=== PATIENT | male | born 1955 | race Caucasian/White ===

== ENCOUNTER 2021-11-03 12:30 | Inpatient (IN) | payer MEDICARE, OTHER ==
[~2021-11-03] VITALS: Ht 172.7 cm; Wt 83.9 kg
[2021-11-03 13:00] VITALS: BP 145/88
[2021-11-03] MEDS ORDERED: MAGNESIUM HYDROXIDE 30 ML UDC PO PRN (13:00)
[2021-11-03] MEDS ORDERED: BLOOD SUGAR DIAGNOSTIC 1 EACH STRIP IN ONE (13:00)
[2021-11-03] MEDS ORDERED: ACETAMINOPHEN 325 MG TABLET PO PRN (13:00)
[2021-11-03] MEDS ORDERED: TEMAZEPAM 7.5 MG CAPSULE PO PRN (13:00)
[2021-11-03] MEDS ORDERED: MAG HYDROX/AL HYDROX/SIMETH 30 ML UDC PO PRN (13:00)
--- NOTE | 2021-11-03 13:00 | NUR ---
RN-ADMISSION NOTES ADMITTED DIRECT ADMIT A 66 Y.O MALE FROM [facility]. PATIENT ON 5150 HOLD FOR DTS. UPON FACE TO FACE INTERVIEW ,PATIENT IS A/O X4 AMBULATORY STEADY GAIT, FLAT AFFECT DID VERBALIZED THAT HE IS DEPRESSED BUT NO SUICIDAL THOUGHT AT THIS TIME. PATIENT'S RIGHT AND ADVISEMENT WAS REVIEWED AND GIVEN TO THE PATIENT.PATIENT REFUSED FULL BODY ASSESSMENT AND MRSA SWAB. PATIENT DID GAVE A MAPLE SUGAR MAKER DANYDELTA ANAIS BUT FORGOT THE PHONE NUMBER. PATIENT WAS ORIENTED IN THE UNIT AND UNIT POLICIES. DR. ORTEGA (PSYCHISTRIST) AND ANKIT MARIO ( SUSTAINABLE AGRICULTURE SPECIALIST ) BOTH MADE AWARE OF THE ADMISSION. WILL CONT. MONITORING FOR SAFETY AND BEHAVIOR. Addendum: 11/03/21 at 1728 by ROBERTO LANDRUM RN BLUE RIVERA (ADMITTING SUSTAINABLE AGRICULTURE SPECIALIST ) WAS NOTIFIED AND TO RECONCILE PT'S MEDICATIONS.
[2021-11-03] MEDS ORDERED: ALLO300T2 PO (13:12)
[2021-11-03] MEDS ORDERED: DOLU50TA PO (13:12)
[2021-11-03] MEDS ORDERED: EMTR1TAB17 PO (13:12)
[2021-11-03] MEDS ORDERED: OMEP1PAC7 PO (13:12)
[2021-11-03] MEDS ORDERED: OXYC30TA2 PO (13:12)
[2021-11-03] MEDS ORDERED: BENA1TAB18 PO (13:12)
[2021-11-03] MEDS ORDERED: DIPH25CA83 PO (13:12)
[2021-11-03] MEDS ORDERED: GABA300C PO (13:12)
[2021-11-03] MEDS ORDERED: ESZO3TAB39 PO (13:12)
[2021-11-03 16:00] VITALS: BP 145/88
--- NOTE | 2021-11-03 18:24 | NUR ---
RN-NOTES PATIENT LYING IN BED AWAKE,A/O X3,GUARDED,NO ACUTE DISTRESS NOTED. AMBULATORY STEADY GAIT. ABLE TO MAKE NEEDS KNOWN TO THE STAFF.ALL NEEDS ATTENDED AND ANTICIPATED. SEEN BY BLUE RIVERA.WILL CONT. MONITORING FOR SAFETY AND BEHAVIOR.WILL ENDORSE TO INCOMING SHIFT FOR CONTINUITY OF CARE.
[2021-11-03] MEDS ORDERED: DESCOVY PO SCH (18:30)
[2021-11-03] MEDS ORDERED: TIVICAY 50 MG PO SCH (18:30)
[2021-11-03] MEDS ORDERED: HOME MED MISCELLANEOUS XX SCH ×2 (18:30)
[2021-11-03] MEDS: LORAZEPAM 0.5 MG TABLET PO PRN (19:52)
--- NOTE | 2021-11-03 19:58 | NUR ---
RN NOTE: ANXIETY PATIENT EXHIBITS RESTLESSNESS AND EXPRESSES FEELING ANXIOUS. PRN ATIVAN 1MG ADMINISTERED @1951. WILL CONTINUE TO MONITOR PATIENT AND EFFECTIVENESS OF MEDICATION.
[2021-11-03 20:57] VITALS: BP 140/83
[2021-11-03] MEDS: QUETIAPINE FUMARATE 25 MG TABLET PO SCH (21:25)
--- NOTE | 2021-11-04 06:15 | NUR ---
RN NOTE Patient presents as anxious and restless. He is observed pacing in his room and says he has trouble sleeping. PRN Ativan 1mg was administered @1951. Medication was effective and patient was calm and redirectable thereafter. Patient is able to verbalize his needs appropriately, but has poor impulse control. He is also easily irritable and requires frequent de-escalation. Will continue to monitor patient.
--- NOTE | 2021-11-04 07:24 | NUR ---
GPS RN OPENING NOTE RECEIVED PT ASLEEP IN BED, EASILY AROUSED. PT A/O X4, ABLE TO MAKE NEEDS KNOWN. PT IS NOT IN ANY SIGN OF DISTRESS. PT IS CALM WITH NO EPISODE OF UNTOWARD BEHAVIOR AT THIS TIME. SAFETY MEASURES MAINTAINED. WILL CONTINUE TO MONITOR PT.
[2021-11-04 08:00] VITALS: BP 114/63
[2021-11-04] MEDS: PANTOPRAZOLE 40 MG TABLET.DR PO SCH (08:32)
[2021-11-04] MEDS: SERTRALINE HCL 50 MG TABLET PO SCH (08:32)
[2021-11-04] MEDS: BENAZEPRIL HCL 20 MG TABLET PO SCH (08:33)
[2021-11-04] MEDS: ALLOPURINOL 100 MG TABLET PO SCH (08:33)
[2021-11-04] MEDS: NICOTINE PATCH (7MG) 7 MG PATCH.TD24 TD SCH (08:33)
[2021-11-04] MEDS: HYDROCHLOROTHIAZIDE 25 MG TABLET PO SCH (08:34)
--- NOTE | 2021-11-04 09:43 | NUR ---
RN-CO: DR RIVERA ORDERED TO CHANGE DIET FROM CARDIAC TO [id number] PORTION) PER PT REQUEST.
--- NOTE | 2021-11-04 09:54 | NUR ---
RN-CO: Patient refused Cardiac Diet, he insisted to regular diet and double portion.
[2021-11-04] MEDS: GABAPENTIN 300 MG CAPSULE PO SCH (10:07)
--- NOTE | 2021-11-04 13:20 | NUR ---
GPS RN NOTE PT A/O X4, ABLE TO MAKE NEEDS KNOWN. PT IS NOT IN ANY SIGN OF DISTRESS. PT REMAINS CALM WITH NO EPISODE OF UNTOWARD BEHAVIOR AT THIS TIME. SAFETY MEASURES MAINTAINED. WILL CONTINUE TO MONITOR PT.
[2021-11-04 16:00] VITALS: BP 135/88
--- NOTE | 2021-11-04 16:22 | NUR ---
GPS RN NOTE PT C/O INDIGESTION AND REQUESTED MAALOX. MAALOX 30ML GIVEN ORDERED PRN Q4HRS FOR INDIGESTION. WILL MONITOR AND REASSESS PT.
[2021-11-04 19:26] LABS: ALBUMIN 3.4 g/dL (3.4-5.0); BILIRUBIN,TOTAL 0.4 mg/dL (0.2-1.0); CALCIUM, SERUM 8.5 mg/dL (8.5-10.1); CREATININE 1.2 mg/dL (0.6-1.3); POTASSIUM 4.1 mmol/L (3.5-5.1)
[2021-11-04 19:42] LABS: CHOLESTEROL 182 mg/dL (<200); HDL CHOLESTEROL 43 mg/dL (40-60); LDL 98 mg/dL (0-99); TRIGLYCERIDES 354 mg/dL (30-150)
[2021-11-04 20:00] VITALS: BP 128/73
[2021-11-04] MEDS: LORAZEPAM 0.5 MG TABLET PO PRN (20:01)
--- NOTE | 2021-11-04 20:01 | NUR ---
RN NOTE PT COMPLAINED OF ANXIETY AND REQUESTED ATIVAN. ADMINISTERED ATIVAN 1 MG FOR ANXIETY ORDERED. ALL NEEDS MET AT THIS TIME.
[2021-11-04 20:02] VITALS: BP 128/73
[2021-11-04] MEDS: QUETIAPINE FUMARATE 25 MG TABLET PO SCH (21:53)
[2021-11-04] MEDS: HYDROCODONE/APAP 10/325MG TABLET PO PRN (21:58)
--- NOTE | 2021-11-04 21:58 | NUR ---
RN NOTE PT COMPLAINED OF PAIN 8/10 OF BILATERAL THIGHS. REQUESTED PAIN MEDICATION. ADMINISTERED NORCO 10-325 MG FOR SEVERE PAIN ORDERED. ALL NEEDS MET AT THIS TIME.
[2021-11-05 08:00] VITALS: BP 151/96
[2021-11-05] MEDS: PANTOPRAZOLE 40 MG TABLET.DR PO SCH (08:30)
[2021-11-05] MEDS: SERTRALINE HCL 50 MG TABLET PO SCH (08:33)
[2021-11-05] MEDS: BENAZEPRIL HCL 20 MG TABLET PO SCH (08:33)
[2021-11-05] MEDS: GABAPENTIN 300 MG CAPSULE PO SCH (08:33)
[2021-11-05] MEDS: HYDROCHLOROTHIAZIDE 25 MG TABLET PO SCH (08:33)
[2021-11-05] MEDS: ALLOPURINOL 100 MG TABLET PO SCH (08:34)
[2021-11-05] MEDS: LORAZEPAM 0.5 MG TABLET PO PRN ×2 (08:34→18:06)
[2021-11-05] MEDS: NICOTINE PATCH (7MG) 7 MG PATCH.TD24 TD SCH (08:34)
[2021-11-05] MEDS: HYDROCODONE/APAP 10/325MG TABLET PO PRN (13:00)
--- NOTE | 2021-11-05 15:22 | NUR ---
Initial Discharge Plan: Pt. states he currently resides at home [[address] [facility] [address]; [phone]] with his partner and declined to provide partner's information. Per pt. he would like to return home when ready for discharge. Per pt. his partner will not be able to pick him up upon discharge. Pt. states he does not have a DPOA or Conservator and that he does not want his family involved in his treatment. Pt. states he does not want SW to call his family. Noted.
--- NOTE | 2021-11-05 15:26 | NUR ---
No Point of Contact: Pt. stated that his sister, Eliana Faith [phone] is to only be an emergency contact. Pt. states he does not have a DPOA or Conservator and that he does not want his family involved in his treatment. Pt. states he does not want SW to call his family. Noted.
[2021-11-05 16:00] VITALS: BP 115/78
[2021-11-05 19:55] VITALS: BP 129/85
[2021-11-05 20:00] VITALS: BP 129/85
[2021-11-05] MEDS: diphenhydrAMINE HCL 25 MG CAPSULE PO PRN (21:17)
--- NOTE | 2021-11-05 21:20 | NUR ---
RN NOTE: INSOMNIA PATIENT C/O INABILITY TO SLEEP AND WANTED TO TAKE BENADRYL AT THIS TIME. PRN BENADRYL 50 MG PO ADMINISTERED ORDERED BY FOR INSOMNIA.
[2021-11-05] MEDS: QUETIAPINE FUMARATE 25 MG TABLET PO SCH (22:08)
--- NOTE | 2021-11-06 07:13 | NUR ---
GPS RN NOTE DISCUSSED WITH THE PATIENT IF HIS FAMILY COULD PROVIDE DESCOVY AND TIVICAY MEDICATION BUT PATIENT STATED THAT HE DOES NOT HAVE MEDICATION OR REFILLS AT HOME AND THERE IS NO FAMILY MEMBER LIVES IN THE STATE. INFORMED AM CHARGE NURSE TO RELAY THE MESSAGE TO AM MD REGARDING UNAVAILABILITY OF THESES 2 MEDICATIONS ORDERED.
[2021-11-06 08:00] VITALS: BP 118/70
[2021-11-06] MEDS: PANTOPRAZOLE 40 MG TABLET.DR PO SCH (08:20)
[2021-11-06] MEDS ORDERED: EMTRICITABINE 200 MG CAPSULE PO SCH (09:00)
[2021-11-06] MEDS ORDERED: DESCOVY PO SCH (09:00)
[2021-11-06] MEDS: GABAPENTIN 300 MG CAPSULE PO SCH (09:17)
[2021-11-06] MEDS: NICOTINE PATCH (7MG) 7 MG PATCH.TD24 TD SCH (09:18)
[2021-11-06] MEDS: SERTRALINE HCL 50 MG TABLET PO SCH (09:18)
[2021-11-06] MEDS: HYDROCHLOROTHIAZIDE 25 MG TABLET PO SCH (09:19)
[2021-11-06] MEDS: ALLOPURINOL 100 MG TABLET PO SCH (09:19)
[2021-11-06] MEDS: BENAZEPRIL HCL 20 MG TABLET PO SCH (09:23)
[2021-11-06 16:00] VITALS: BP 127/85
[2021-11-06] MEDS: LORAZEPAM 0.5 MG TABLET PO PRN (16:00)
--- NOTE | 2021-11-06 16:00 | NUR ---
Patient c/o anxiety medicated with Ativan 1mg x1 will continue to monitor .
[2021-11-06] MEDS: HYDROCODONE/APAP 10/325MG TABLET PO PRN (16:57)
--- NOTE | 2021-11-06 16:58 | NUR ---
PATIENT C/O GENERALIZED PAIN MEDICATED WITH NORCO 10MG /325MG WILL CONTINUE TO MONITOR .
[2021-11-06 20:32] VITALS: BP 113/69
[2021-11-06] MEDS: diphenhydrAMINE HCL 25 MG CAPSULE PO PRN (20:49)
[2021-11-06] MEDS: QUETIAPINE FUMARATE 25 MG TABLET PO SCH (21:01)
[2021-11-07 08:00] VITALS: BP 111/80
[2021-11-07] MEDS: PANTOPRAZOLE 40 MG TABLET.DR PO SCH (08:03)
--- NOTE | 2021-11-07 08:04 | NUR ---
RN:PER PT, HE DOESN'T HAVE DICOVAY AT HOUSE.
[2021-11-07] MEDS: ALLOPURINOL 100 MG TABLET PO SCH (08:11)
[2021-11-07] MEDS: NICOTINE PATCH (7MG) 7 MG PATCH.TD24 TD SCH (08:11)
[2021-11-07] MEDS: SERTRALINE HCL 50 MG TABLET PO SCH (08:12)
[2021-11-07] MEDS: GABAPENTIN 300 MG CAPSULE PO SCH (08:12)
[2021-11-07] MEDS: BENAZEPRIL HCL 20 MG TABLET PO SCH (08:13)
[2021-11-07] MEDS: HYDROCHLOROTHIAZIDE 25 MG TABLET PO SCH (08:13)
--- NOTE | 2021-11-07 08:18 | NUR ---
RN-CO: ALONZO -PHARMACY NOTIFIED REGARDING HIV MEDICATION THAT IS MISSING. PER ALONZO HE WILL TALK TO THE DOCTOR.
[2021-11-07] MEDS: LORAZEPAM 0.5 MG TABLET PO PRN (11:00)
--- NOTE | 2021-11-07 11:00 | NUR ---
RN-CO: ATIVAN 1 MG PO GIVEN FOR C/O ANXIETY.
[2021-11-07 16:00] VITALS: BP 99/56
[2021-11-07 20:00] VITALS: BP 132/90
[2021-11-07] MEDS: QUETIAPINE FUMARATE 25 MG TABLET PO SCH (21:04)
--- NOTE | 2021-11-07 22:02 | NUR ---
RN note: Patient brought to my attention that his right index finger is swollen and complaining of pain.Offered pain medication but patient refused it. Patient requested to see the MD for possible I & D procedure.ANKIT Baptiste was notified and ordered to address it in the morning for he does not do I &D. Staff explained to patient and patient verbalized understanding.Will endorse to am shift nurse for follow up. Addendum: 11/07/21 at 2217 by LELA DENISE RN correction:Left index finger is swollen not right index finger.
[2021-11-07] MEDS: HYDROCODONE/APAP 10/325MG TABLET PO PRN (22:21)
--- NOTE | 2021-11-07 22:23 | NUR ---
RN note: Patient complaining of pain on his left index finder ;requested and given Eldridge 10-325 mg PO 1 tab as ordered for pain.Will monitor for the effectiveness in a hour.
[2021-11-08 08:00] VITALS: BP 140/94
[2021-11-08] MEDS: HYDROCODONE/APAP 10/325MG TABLET PO PRN (08:04)
[2021-11-08] MEDS: PANTOPRAZOLE 40 MG TABLET.DR PO SCH (08:04)
[2021-11-08] MEDS: SERTRALINE HCL 50 MG TABLET PO SCH (08:51)
[2021-11-08] MEDS: NICOTINE PATCH (7MG) 7 MG PATCH.TD24 TD SCH (08:51)
[2021-11-08 08:52] VITALS: BP 140/94
[2021-11-08] MEDS: BENAZEPRIL HCL 20 MG TABLET PO SCH (08:52)
[2021-11-08] MEDS: GABAPENTIN 300 MG CAPSULE PO SCH (08:52)
[2021-11-08] MEDS: HYDROCHLOROTHIAZIDE 25 MG TABLET PO SCH (08:52)
[2021-11-08] MEDS: ALLOPURINOL 100 MG TABLET PO SCH (08:53)
--- NOTE | 2021-11-08 09:11 | NUR ---
DISCHARGE NOTE: Patient will be discharged home to [address] [address]; ([phone]). Patient will be provided with taxi transportation at 2PM. Upon discharge, patient appear to be calm, cooperative and happy to be going home. Patient does not want any family to be contacted. Patient denies suicidal and homicidal ideation. Patient denies visual/auditory hallucinations. Patient will follow up with ([facility] Dr. Samuel located at [address] [place] [address]; . Patient referred for intake evaluation (psychiatry) at [facility] [[email or web address] located at [address] [place] [id number]; ([phone]) on November 13 at 1:30PM VIA TELEHEALTH. Pt presented with euthymic mood and congruent affect.
--- NOTE | 2021-11-08 09:11 | NUR ---
NESSA Coordination of Care: Patient referred for intake evaluation (psychiatry) at [facility] located at [address] [place], [place] [id number]; ([phone]) on November 13 at 1:30PM VIA TELEHEALTH.
--- NOTE | 2021-11-08 10:33 | NUR ---
RN-NOTES DNP DEJA IN THE UNIT AND DID PUNCTURE PATIENT BLISTER ON THE LEFT INDEX FINGER, MEDICALLY DISCHARGE PATIENT.
--- NOTE | 2021-11-08 11:35 | NUR ---
RN-DISCHARGE NOTES PATIENT HAD A DISCHARGE ORDER FROM DR. ORTEGA ( PSYCHIATRIST) AND BLUE SHORT MEDICALLY DISCHARGE PATIENT. PATIENT A/O X4 AMBULATORY STEADY GAIT. PATIENT DENIES SI/HI /AVH AT THE TIME OF DISCHARGE. INSTRUCTED PATIENT TO F/U WITH PCP AND PSYCHIATRIST IN A WEEK OR NEEDED AND CALL 911 OR GO TO THE NEAREST EMERGENCY FACILITY IN CASE OF EMERGENCIES. PATIENT WAS ASSISTED BY ACTIVITY STAFF IN THE LOBBY FOR SAFETY ALL BELONGINGS WAS GIVEN BACK TO THE PATIENT. PATIENT LEFT THE UNIT IN STABLE CONDITION. LEFT THE HOSPITAL VIA TAXI.
== END 2021-11-08 11:35 | disposition home or self-care (01) | DRG 885 ==
LOC: GPS 12:30
PROVIDERS: ADMIT Psychiatry & Neurology Psychiatry; ATTEND Nurse Practitioner Acute Care
DX: F32.3 Major depressive disorder, single episode, severe with psychotic features (principal); R45.851 Suicidal ideations; F29 Unspecified psychosis not due to a substance or known physiological condition; E66.9 Obesity, unspecified; I10 Essential (primary) hypertension; Z90.79 Acquired absence of other genital organ(s); Z90.49 Acquired absence of other specified parts of digestive tract; G62.9 Polyneuropathy, unspecified; F17.210 Nicotine dependence, cigarettes, uncomplicated; Z68.28 Body mass index [BMI] 28.0-28.9, adult; L03.012 Cellulitis of left finger; F41.9 Anxiety disorder, unspecified; G47.30 Sleep apnea, unspecified; Z79.899 Other long term (current) drug therapy
CPT/HCPCS: 36415; 80053-TC; 80061-TC; 82962-TC; A6403; Q0163